=== PATIENT | male | born 1970 | race Caucasian/White ===

== ENCOUNTER 2017-03-18 12:38 | Emergency (ER) | payer MEDICAID ==
[~2017-03-18] VITALS: Ht 167.6 cm; Wt 84.4 kg
[2017-03-18 12:38] VITALS: BP 158/108
--- NOTE | 2017-03-18 12:46 | NUR ---
Patient ambulated to bed 5. RN evaluating patient at bedside.
--- NOTE | 2017-03-18 12:47 | NUR ---
46M BIB FAMILY C/O RT EYE PAIN X YESTERDAY; PT STATES " I THINK I HAVE SOMETHING IN MY EYE. I CAN FEEL IT. I can't open r eye" . AAOX4 WITH EVEN AND STEADY GAIT; LUNGS CLEAR BL; HR EVEN AND REGULAR; PT DENIES ANY FEVER, CP, SOB, OR COUGH AT THIS TIME; PATIENT STATES PAIN OF 9/10 AT THIS TIME; PATIENT POSITIONED FOR COMFORT; HOB ELEVATED; BEDRAILS UP X2; BED DOWN. ER MD MADE AWARE OF PT STATUS.
--- NOTE | 2017-03-18 12:52 | NUR ---
Dr. Sy evaluating patient at bedside.
--- NOTE | 2017-03-18 12:52 | NUR ---
Rd younger in [facility] - 03/18/17 at 1255 by [email or web address] Patient being evaluated by DR VÁSQUEZ at bedside.
[2017-03-18] MEDS ORDERED: TETRACAINE HCL/PF 0.5% OPTH 4 ML BTL ONE (13:03)
--- NOTE | 2017-03-18 13:12 | NUR ---
Dr. Sy at bedside for procedure.
--- NOTE | 2017-03-18 13:57 | NUR ---
[facility] at bedside for transfer to [facility] ER.
[2017-03-18 14:07] VITALS: BP 144/87
--- NOTE | 2017-03-18 14:09 | NUR ---
[facility]
--- NOTE | 2017-03-18 14:10 | NUR ---
Patient to be transferred to [facility] . Is being transferred due to HIGH LEVEL . Receiving facility has accepting physician and available space. ER physician has signed transfer form. Patient or responsible democrat has agreed to transfer and signed form. Patient belongings inventoried and will be sent with patient. Copy of nursing notes, lab reports, EKG, Physicians Orders and X-rays to be sent with patient. Report called to CHARGE TEMIYN at receiving facility. ambulance service has been called for transfer.
== END 2017-03-18 14:10 | disposition short-term general hospital (02) ==
LOC: MED 12:38
DX: T15.91XA Foreign body on external eye, part unspecified, right eye, initial encounter (principal); Z88.2 Allergy status to sulfonamides; X58.XXXA Exposure to other specified factors, initial encounter; Y93.89 Activity, other specified; Y92.89 Other specified places as the place of occurrence of the external cause; Y99.8 Other external cause status
CPT/HCPCS: 65222; 99285